=== PATIENT | male | born 1960 | race Caucasian/White ===

== ENCOUNTER 2016-09-05 14:19 | Emergency (ER) | payer MEDICARE, MEDICAID ==
[~2016-09-05] VITALS: Ht 188 cm; Wt 87.0 kg
[~2016-09-05 14:19] MED LIST: ALOPURINOL; AMLO5TAB2 PO; ASCO500T8 PO; ASPI-496 PO; ASPI-515; ATOR10TA; ATOR40TA78 PO; CARV6.252 PO; CIPR500T87 PO; CITA10TA4 PO; CLOP75TA PO; CLOP75TA22 PO; DIAZ2TAB PO; DOCU-30 PO; ERGO500017 PO; EZET10TA3 PO; FENO145T13 PO; FENO145T32 PO; FERR324T5 PO; FISH1CAP PO; FOLI-17 PO; LEVE100S6 PO; LEVE500T53 PO; LEVE750T37 PO; LOSA50TA6 PO; MAGN250T8 PO; METO-93; NIAC500T; NITR100C56 PO; OXYC-302 PO; PHEN100C PO; SULF1TAB24 PO; TAMS-11 PO; TERB250T3 PO; UBID1CAP3 PO; VITA1CAP PO; VITAMIN D2 PO; WARF3TAB PO; WARF4TAB PO; WARF6TAB7 PO
[2016-09-05] MEDS ORDERED: SODIUM CHLORIDE FLUSH 10ML SYR IVF ONE (14:30)
[2016-09-05] MEDS ORDERED: LORazepam 2 MG/ML, 1ML IVPush ONE (14:30)
[2016-09-05] MEDS ORDERED: LORazepam 2 MG/ML, 1ML ONE (14:49)
[2016-09-05] MEDS ORDERED: LEVETIRACETAM 500 MG in SODIUM CHLORIDE 0.9% 100 ML IV ONE (15:00)
[2016-09-05] MEDS ORDERED: FOLI-17 PO (15:02)
[2016-09-05] MEDS ORDERED: DOXY100T PO (15:02)
[2016-09-05] MEDS ORDERED: TERB250T3 PO (15:02)
[2016-09-05] MEDS ORDERED: ASCO500T8 PO (15:02)
[2016-09-05] MEDS ORDERED: NITR100C56 PO (15:02)
[2016-09-05 15:29] LABS: ASPARTATE AMINO TRANSFERASE 23 U/L (15-37); BLOOD UREA NITROGEN 18 mg/dL (7-18)
[2016-09-05 15:37] LABS: ACETAMINOPHEN < 2 mcg/mL (10-30); IS PT STATUS REG ER OR PRE ER? YES
[2016-09-05 15:47] LABS: DAU SCREEN DISCLAIMER
[2016-09-05 17:34] VITALS: BP 146/78
== END 2016-09-05 18:18 | disposition home or self-care (01) ==
LOC: ED 14:37
DX: R56.9 Unspecified convulsions (principal); N30.00 Acute cystitis without hematuria; I10 Essential (primary) hypertension; Z86.718 Personal history of other venous thrombosis and embolism; I25.2 Old myocardial infarction; Z86.73 Personal history of transient ischemic attack (TIA), and cerebral infarction without residual deficits; E78.5 Hyperlipidemia, unspecified
CPT/HCPCS: 36415; 70450; 71010; 80053; 80307; 80329; 81001; 83605; 84484; 85025; 85610; 87077; 87086; 87186; 93005; 96365; 96375; 99285; J1953; J2060; G0480

== ENCOUNTER 2016-09-06 21:31 | Emergency (ER) | payer MEDICARE, MEDICAID ==
[~2016-09-06] VITALS: Ht 188 cm; Wt 86.4 kg
[~2016-09-06 21:31] MED LIST changes: +DOXY100T PO
[2016-09-06 21:38] VITALS: BP 138/72
== END 2016-09-06 22:43 | disposition home or self-care (01) ==
LOC: ED 22:02
DX: R56.9 Unspecified convulsions (principal); G89.11 Acute pain due to trauma; M25.511 Pain in right shoulder; E78.5 Hyperlipidemia, unspecified; I10 Essential (primary) hypertension; I25.2 Old myocardial infarction; W05.0XXA Fall from non-moving wheelchair, initial encounter; Y93.89 Activity, other specified; Y99.8 Other external cause status; Y92.89 Other specified places as the place of occurrence of the external cause
CPT/HCPCS: 99283

== ENCOUNTER 2016-09-27 18:16 | Inpatient (IN) | payer MEDICARE, MEDICAID ==
[~2016-09-27] VITALS: Ht 188 cm; Wt 81.8 kg
[2016-09-27] MEDS ORDERED: LORA-445 PO (18:42)
[2016-09-27] MEDS ORDERED: SODIUM CHLORIDE FLUSH 10ML SYR IVF ONE (19:00)
[2016-09-27] MEDS ORDERED: SODIUM CHLORIDE 0.9% 1,000ML IVBOLUS ONE (19:00)
[2016-09-27 19:25] LABS: BLOOD UREA NITROGEN 13 mg/dL (7-18)
[2016-09-27 19:29] LABS: ASPARTATE AMINO TRANSFERASE 25 U/L (15-37)
[2016-09-27] MEDS ORDERED: LABETALOL 5MG/ML, 20ML IVPush PRN (23:30)
[2016-09-27] MEDS ORDERED: MAGNESIUM SULFATE PMX 2GM/50ML 50 ML IV ONE (23:30)
[2016-09-27] MEDS ORDERED: ENALAPRILAT 1.25 MG/ML, 2ML IVPush PRN (23:30)
[2016-09-27] MEDS ORDERED: PROMETHAZINE 25 MG/ML, 1ML IM PRN (23:30)
[2016-09-27] MEDS: SODIUM CHLORIDE 0.9% 1,000 ML IV SCH (23:45)
[2016-09-27 23:47] LABS: IS PT STATUS REG ER OR PRE ER? YES
[2016-09-28 00:14] LABS: DAU SCREEN DISCLAIMER
[2016-09-28 01:29] VITALS: BP 135/76
[2016-09-28] MEDS: LEVETIRACETAM 1,000 MG in SODIUM CHLORIDE 0.9% 100 ML IV SCH ×2 (01:43→12:11)
[2016-09-28] MEDS: ENOXAPARIN 40 MG/0.4 ML SQ SCH (01:45)
[2016-09-28 05:10] LABS: BLOOD UREA NITROGEN 13 mg/dL (7-18)
[2016-09-28 05:11] LABS: IS PT STATUS REG ER OR PRE ER? NO
[2016-09-28 05:23] LABS: ASPARTATE AMINO TRANSFERASE 27 U/L (15-37)
[2016-09-28 06:43] VITALS: BP 147/83
[2016-09-28] MEDS: SODIUM CHLORIDE 0.9% 1,000 ML IV SCH ×3 (09:46→23:47)
[2016-09-28] MEDS ORDERED: NICOTINE 7 MG/24 HR PATCH.TD24 TD SCH (13:00)
[2016-09-28] MEDS ORDERED: LORazepam 0.5MG TABLET PO PRN (13:00)
[2016-09-28 14:03] VITALS: BP 163/78
[2016-09-28 19:08] VITALS: BP 147/75
[2016-09-28] MEDS: LEVETIRACETAM 500 MG TABLET PO SCH (21:38)
[2016-09-29 01:09] VITALS: BP 148/76
[2016-09-29] MEDS: ENOXAPARIN 40 MG/0.4 ML SQ SCH (01:36)
[2016-09-29] MEDS: SODIUM CHLORIDE 0.9% 1,000 ML IV SCH (06:30)
[2016-09-29 08:00] VITALS: BP 175/99
[2016-09-29] MEDS ORDERED: LEVE500T53 PO (09:04)
[2016-09-29] MEDS: LEVETIRACETAM 500 MG TABLET PO SCH (09:23)
[2016-09-29 11:29] VITALS: BP 137/87
== END 2016-09-29 11:50 | disposition home or self-care (01) | DRG 100 ==
LOC: ED 20:51 → EDIP 22:00 → 5SO 09-28 01:09
PROVIDERS: ADMIT Internal Medicine; ATTEND Internal Medicine
PROC: 0T9B70Z Drainage of Bladder with Drainage Device, Via Natural or Artificial Opening (ICD-10-PCS; principal; 2016-09-27)
DX: G40.209 Localization-related (focal) (partial) symptomatic epilepsy and epileptic syndromes with complex partial seizures, not intractable, without status epilepticus (principal); G92 Toxic encephalopathy; I69.354 Hemiplegia and hemiparesis following cerebral infarction affecting left non-dominant side; T42.4X1A Poisoning by benzodiazepines, accidental (unintentional), initial encounter; I45.81 Long QT syndrome; I10 Essential (primary) hypertension; M10.9 Gout, unspecified; I25.10 Atherosclerotic heart disease of native coronary artery without angina pectoris; D63.8 Anemia in other chronic diseases classified elsewhere; E78.1 Pure hyperglyceridemia; E78.5 Hyperlipidemia, unspecified; N35.9 Urethral stricture, unspecified; I71.2 Thoracic aortic aneurysm, without rupture; I25.2 Old myocardial infarction; Z72.0 Tobacco use; Z71.6 Tobacco abuse counseling; Z79.01 Long term (current) use of anticoagulants; Z79.899 Other long term (current) drug therapy; Z86.79 Personal history of other diseases of the circulatory system; Z95.1 Presence of aortocoronary bypass graft; Z95.2 Presence of prosthetic heart valve; Z95.5 Presence of coronary angioplasty implant and graft; Z99.3 Dependence on wheelchair; Y92.89 Other specified places as the place of occurrence of the external cause
CPT/HCPCS: 36415; 70450; 80053; 80307; 81003; 82140; 82550; 83735; 84100; 84443; 84484; 85025; 87324; 93005; 95819; 99285; J1650; J1953; J2550; J3475; J7030

== ENCOUNTER 2016-09-30 01:31 | Inpatient (IN) | payer MEDICARE, MEDICAID ==
[~2016-09-30] VITALS: Ht 188 cm; Wt 87.9 kg
[~2016-09-30 01:31] MED LIST changes: +LORA-445 PO
[2016-09-30 02:54] LABS: ASPARTATE AMINO TRANSFERASE 20 U/L (15-37); BLOOD UREA NITROGEN 9 mg/dL (7-18)
[2016-09-30 03:05] LABS: IS PT STATUS REG ER OR PRE ER? YES
[2016-09-30 03:31] LABS: DAU SCREEN DISCLAIMER
[2016-09-30] MEDS ORDERED: CEFTRIAXONE 1,000 MG in SODIUM CHLORIDE 0.9% 50 ML IV ONE (04:30)
[2016-09-30] MEDS ORDERED: LEVETIRACETAM 500 MG in SODIUM CHLORIDE 0.9% 100 ML IV ONE (04:30)
[2016-09-30] MEDS ORDERED: CEFTRIAXONE PMX 1GM/50ML 50 ML ONE (04:34)
[2016-09-30] MEDS ORDERED: POTASSIUM CHLORIDE 20 MEQ, MAGNESIUM SULFATE 2 GM, THIAMINE 100 MG, MVI ADULT 10 ML, FO... IV SCH (05:11)
[2016-09-30] MEDS ORDERED: BISACODYL 10 MG SUPP PR PRN (05:30)
[2016-09-30] MEDS ORDERED: POLYETHYLENE GLYCOL 17 GM PACKET PO PRN (05:30)
[2016-09-30] MEDS ORDERED: hydrALAzine 20 MG/ML, 1ML IVPush PRN (05:30)
[2016-09-30] MEDS ORDERED: LORazepam 0.5MG TABLET PO PRN (05:30)
[2016-09-30] MEDS ORDERED: DOCUSATE 100 MG CAPSULE PO PRN (05:30)
[2016-09-30 06:00] VITALS: BP 166/89
[2016-09-30] MEDS: PIPERACILLIN/TAZO 3.375 GM in SODIUM CHLORIDE 0.9% 50 ML IV SCH ×4 (06:13→23:51)
[2016-09-30] MEDS: ENOXAPARIN 40 MG/0.4 ML SQ SCH (09:02)
[2016-09-30] MEDS: LEVETIRACETAM 500 MG TABLET PO SCH ×2 (09:03→20:41)
[2016-09-30] MEDS: CARVEDILOL 6.25 MG TABLET PO SCH ×2 (09:03→20:42)
[2016-09-30] MEDS: LOSARTAN 50MG TABLET PO SCH ×2 (09:03→20:42)
[2016-09-30] MEDS: ASPIRIN 81 MG TABLET EC PO SCH (09:03)
[2016-09-30] MEDS: AMLODIPINE 5 MG TABLET PO SCH (09:03)
[2016-09-30] MEDS: CLOPIDOGREL 75 MG TABLET PO SCH (09:03)
[2016-09-30 14:04] VITALS: BP 112/70
[2016-09-30 18:53] VITALS: BP 149/83
[2016-09-30] MEDS: FOLIC ACID 1 MG TABLET PO SCH (20:41)
[2016-09-30] MEDS: TAMSULOSIN 0.4 MG CAP.ER.24H PO SCH (20:41)
[2016-09-30] MEDS: EZETIMIBE 10 MG TABLET PO SCH (20:41)
[2016-09-30] MEDS: ATORVASTATIN 80 MG TABLET PO SCH (20:41)
[2016-09-30] MEDS: FENOFIBRATE 145 MG TABLET PO SCH (20:41)
[2016-09-30] MEDS: CITALOPRAM 20 MG TABLET PO SCH (20:42)
[2016-10-01 01:36] VITALS: BP 130/65
[2016-10-01 01:43] VITALS: BP 147/74
[2016-10-01] MEDS: PIPERACILLIN/TAZO 3.375 GM in SODIUM CHLORIDE 0.9% 50 ML IV SCH (05:19)
[2016-10-01] MEDS: POTASSIUM CHLORIDE 20 MEQ, MAGNESIUM SULFATE 2 GM, THIAMINE 100 MG, MVI ADULT 10 ML, FO... IV SCH (05:58)
[2016-10-01 08:06] VITALS: BP 123/77
[2016-10-01] MEDS: CARVEDILOL 6.25 MG TABLET PO SCH ×2 (09:04→21:34)
[2016-10-01] MEDS: CLOPIDOGREL 75 MG TABLET PO SCH (09:04)
[2016-10-01] MEDS: ENOXAPARIN 40 MG/0.4 ML SQ SCH (09:05)
[2016-10-01] MEDS: LOSARTAN 50MG TABLET PO SCH ×2 (09:05→21:34)
[2016-10-01] MEDS: LEVETIRACETAM 500 MG TABLET PO SCH ×2 (09:06→21:34)
[2016-10-01] MEDS: AMLODIPINE 5 MG TABLET PO SCH (09:06)
[2016-10-01] MEDS: ASPIRIN 81 MG TABLET EC PO SCH (09:06)
[2016-10-01 14:07] VITALS: BP 145/82
[2016-10-01 18:41] VITALS: BP 126/73
[2016-10-01] MEDS: EZETIMIBE 10 MG TABLET PO SCH (21:34)
[2016-10-01] MEDS: ATORVASTATIN 80 MG TABLET PO SCH (21:34)
[2016-10-01] MEDS: TAMSULOSIN 0.4 MG CAP.ER.24H PO SCH (21:34)
[2016-10-01] MEDS: FOLIC ACID 1 MG TABLET PO SCH (21:34)
[2016-10-01] MEDS: FENOFIBRATE 145 MG TABLET PO SCH (21:34)
[2016-10-01] MEDS: CITALOPRAM 20 MG TABLET PO SCH (21:35)
[2016-10-02 01:21] VITALS: BP 159/73
[2016-10-02] MEDS: POTASSIUM CHLORIDE 20 MEQ, MAGNESIUM SULFATE 2 GM, THIAMINE 100 MG, MVI ADULT 10 ML, FO... IV SCH (05:23)
[2016-10-02 07:24] VITALS: BP 170/87
[2016-10-02] MEDS: CARVEDILOL 6.25 MG TABLET PO SCH ×2 (07:36→19:50)
[2016-10-02] MEDS: CLOPIDOGREL 75 MG TABLET PO SCH (07:36)
[2016-10-02] MEDS: ENOXAPARIN 40 MG/0.4 ML SQ SCH (07:36)
[2016-10-02] MEDS: AMLODIPINE 5 MG TABLET PO SCH (07:36)
[2016-10-02] MEDS: ASPIRIN 81 MG TABLET EC PO SCH (07:36)
[2016-10-02] MEDS: LEVETIRACETAM 500 MG TABLET PO SCH ×2 (07:36→19:51)
[2016-10-02] MEDS: LOSARTAN 50MG TABLET PO SCH ×2 (07:36→19:51)
[2016-10-02] MEDS: NICOTINE 14MG/24 HR PATCH.TD24 TD SCH (10:13)
[2016-10-02 12:39] VITALS: BP 112/67
[2016-10-02] MEDS ORDERED: LORazepam 1MG TABLET ONE (13:36)
[2016-10-02] MEDS: TAMSULOSIN 0.4 MG CAP.ER.24H PO SCH (19:50)
[2016-10-02] MEDS: EZETIMIBE 10 MG TABLET PO SCH (19:50)
[2016-10-02] MEDS: FOLIC ACID 1 MG TABLET PO SCH (19:50)
[2016-10-02] MEDS: FENOFIBRATE 145 MG TABLET PO SCH (19:51)
[2016-10-02] MEDS: CITALOPRAM 20 MG TABLET PO SCH (19:51)
[2016-10-02] MEDS: ATORVASTATIN 80 MG TABLET PO SCH (19:51)
[2016-10-02 21:04] VITALS: BP 119/74
[2016-10-03 01:32] VITALS: BP 108/73
[2016-10-03] MEDS: POTASSIUM CHLORIDE 20 MEQ, MAGNESIUM SULFATE 2 GM, THIAMINE 100 MG, MVI ADULT 10 ML, FO... IV SCH (05:31)
[2016-10-03 06:54] VITALS: BP 121/75
[2016-10-03] MEDS ORDERED: ASPIRIN 325 MG TABLET PO ONE (07:00)
[2016-10-03] MEDS ORDERED: NITROGLYCERIN 0.4 MG BOTTLE (25 TABS) SL ONE (07:00)
[2016-10-03 08:26] VITALS: BP 108/66
[2016-10-03 08:34] LABS: IS PT STATUS REG ER OR PRE ER? NO
[2016-10-03] MEDS: ASPIRIN 81 MG TABLET EC PO SCH (09:40)
[2016-10-03] MEDS: LEVETIRACETAM 500 MG TABLET PO SCH ×2 (09:40→20:17)
[2016-10-03] MEDS: CLOPIDOGREL 75 MG TABLET PO SCH (09:40)
[2016-10-03] MEDS: CARVEDILOL 6.25 MG TABLET PO SCH ×2 (09:40→20:17)
[2016-10-03] MEDS: AMLODIPINE 5 MG TABLET PO SCH (09:40)
[2016-10-03] MEDS: LOSARTAN 50MG TABLET PO SCH ×2 (09:40→20:17)
[2016-10-03] MEDS: PIPERACILLIN/TAZO/PMX 3.375GM 50 ML IV SCH ×3 (09:40→20:17)
[2016-10-03] MEDS: ENOXAPARIN 40 MG/0.4 ML SQ SCH (09:41)
[2016-10-03] MEDS: NICOTINE 14MG/24 HR PATCH.TD24 TD SCH (09:55)
[2016-10-03 12:44] VITALS: BP 109/65
[2016-10-03] MEDS: ACETAMINOPHEN 325 MG TABLET PO PRN (15:03)
[2016-10-03] MEDS: FOLIC ACID 1 MG TABLET PO SCH (20:16)
[2016-10-03] MEDS: FENOFIBRATE 145 MG TABLET PO SCH (20:16)
[2016-10-03] MEDS: TAMSULOSIN 0.4 MG CAP.ER.24H PO SCH (20:16)
[2016-10-03] MEDS: EZETIMIBE 10 MG TABLET PO SCH (20:16)
[2016-10-03] MEDS: ATORVASTATIN 80 MG TABLET PO SCH (20:17)
[2016-10-03] MEDS: CITALOPRAM 20 MG TABLET PO SCH (20:17)
[2016-10-03 20:18] VITALS: BP 112/72
[2016-10-04 02:00] VITALS: BP 132/82
[2016-10-04] MEDS: PIPERACILLIN/TAZO/PMX 3.375GM 50 ML IV SCH ×4 (02:13→21:19)
[2016-10-04] MEDS: POTASSIUM CHLORIDE 20 MEQ, MAGNESIUM SULFATE 2 GM, THIAMINE 100 MG, MVI ADULT 10 ML, FO... IV SCH (06:31)
[2016-10-04 07:34] VITALS: BP 119/74
[2016-10-04] MEDS: NICOTINE 14MG/24 HR PATCH.TD24 TD SCH (09:30)
[2016-10-04] MEDS: LOSARTAN 50MG TABLET PO SCH ×2 (10:12→21:18)
[2016-10-04] MEDS: ENOXAPARIN 40 MG/0.4 ML SQ SCH (10:12)
[2016-10-04] MEDS: LEVETIRACETAM 500 MG TABLET PO SCH ×2 (10:12→21:18)
[2016-10-04] MEDS: CLOPIDOGREL 75 MG TABLET PO SCH (10:12)
[2016-10-04] MEDS: AMLODIPINE 5 MG TABLET PO SCH (10:13)
[2016-10-04] MEDS: ASPIRIN 81 MG TABLET EC PO SCH (10:13)
[2016-10-04] MEDS: CARVEDILOL 6.25 MG TABLET PO SCH ×2 (10:13→21:18)
[2016-10-04 12:58] VITALS: BP 112/75
[2016-10-04] MEDS: ACETAMINOPHEN 325 MG TABLET PO PRN (16:02)
[2016-10-04 19:13] VITALS: BP 117/72
[2016-10-04] MEDS: ATORVASTATIN 80 MG TABLET PO SCH (21:18)
[2016-10-04] MEDS: TAMSULOSIN 0.4 MG CAP.ER.24H PO SCH (21:18)
[2016-10-04] MEDS: FENOFIBRATE 145 MG TABLET PO SCH (21:18)
[2016-10-04] MEDS: EZETIMIBE 10 MG TABLET PO SCH (21:18)
[2016-10-04] MEDS: FOLIC ACID 1 MG TABLET PO SCH (21:18)
[2016-10-04] MEDS: CITALOPRAM 20 MG TABLET PO SCH (21:19)
[2016-10-05 02:10] VITALS: BP 108/66
[2016-10-05] MEDS: PIPERACILLIN/TAZO/PMX 3.375GM 50 ML IV SCH ×3 (03:42→15:00)
[2016-10-05] MEDS: POTASSIUM CHLORIDE 20 MEQ, MAGNESIUM SULFATE 2 GM, THIAMINE 100 MG, MVI ADULT 10 ML, FO... IV SCH (06:21)
[2016-10-05 06:54] VITALS: BP 109/59
[2016-10-05] MEDS: LEVETIRACETAM 500 MG TABLET PO SCH ×2 (09:16→20:29)
[2016-10-05] MEDS: AMLODIPINE 5 MG TABLET PO SCH (09:16)
[2016-10-05] MEDS: CLOPIDOGREL 75 MG TABLET PO SCH (09:16)
[2016-10-05] MEDS: LOSARTAN 50MG TABLET PO SCH ×2 (09:16→20:30)
[2016-10-05] MEDS: CARVEDILOL 6.25 MG TABLET PO SCH ×2 (09:16→20:29)
[2016-10-05] MEDS: ASPIRIN 81 MG TABLET EC PO SCH (09:16)
[2016-10-05] MEDS: NICOTINE 14MG/24 HR PATCH.TD24 TD SCH (09:17)
[2016-10-05] MEDS: ENOXAPARIN 40 MG/0.4 ML SQ SCH (09:17)
[2016-10-05 13:42] VITALS: BP 118/62
[2016-10-05 19:51] VITALS: BP 127/69
[2016-10-05] MEDS: TAMSULOSIN 0.4 MG CAP.ER.24H PO SCH (20:29)
[2016-10-05] MEDS: FOLIC ACID 1 MG TABLET PO SCH (20:29)
[2016-10-05] MEDS: FENOFIBRATE 145 MG TABLET PO SCH (20:29)
[2016-10-05] MEDS: EZETIMIBE 10 MG TABLET PO SCH (20:29)
[2016-10-05] MEDS: CITALOPRAM 20 MG TABLET PO SCH (20:29)
[2016-10-05] MEDS: ATORVASTATIN 80 MG TABLET PO SCH (20:30)
[2016-10-06 01:26] VITALS: BP 113/72
[2016-10-06] MEDS ORDERED: LORazepam 1MG TABLET ONE ×2 (01:37→13:57)
[2016-10-06] MEDS: LORazepam 0.5MG TABLET PO PRN ×2 (01:39→14:01)
[2016-10-06 06:43] VITALS: BP 150/91
[2016-10-06] MEDS: CARVEDILOL 6.25 MG TABLET PO SCH ×2 (09:26→20:36)
[2016-10-06] MEDS: ENOXAPARIN 40 MG/0.4 ML SQ SCH (09:27)
[2016-10-06] MEDS: ASPIRIN 81 MG TABLET EC PO SCH (09:27)
[2016-10-06] MEDS: AMLODIPINE 5 MG TABLET PO SCH (09:27)
[2016-10-06] MEDS: LOSARTAN 50MG TABLET PO SCH ×2 (09:27→20:36)
[2016-10-06] MEDS: CLOPIDOGREL 75 MG TABLET PO SCH (09:27)
[2016-10-06] MEDS: MULTIVITAMIN 1 TABLET PO SCH (09:27)
[2016-10-06] MEDS: LEVETIRACETAM 500 MG TABLET PO SCH ×2 (09:27→20:35)
[2016-10-06] MEDS: NICOTINE 14MG/24 HR PATCH.TD24 TD SCH (09:29)
[2016-10-06 12:54] VITALS: BP 99/65
[2016-10-06 18:26] VITALS: BP 151/73
[2016-10-06] MEDS: FOLIC ACID 1 MG TABLET PO SCH (20:35)
[2016-10-06] MEDS: EZETIMIBE 10 MG TABLET PO SCH (20:35)
[2016-10-06] MEDS: TAMSULOSIN 0.4 MG CAP.ER.24H PO SCH (20:36)
[2016-10-06] MEDS: ATORVASTATIN 80 MG TABLET PO SCH (20:36)
[2016-10-06] MEDS: FENOFIBRATE 145 MG TABLET PO SCH (20:36)
[2016-10-06] MEDS: CITALOPRAM 20 MG TABLET PO SCH (20:36)
[2016-10-07 01:25] VITALS: BP 99/59
[2016-10-07 08:06] VITALS: BP 137/74
[2016-10-07] MEDS: CARVEDILOL 6.25 MG TABLET PO SCH (08:40)
[2016-10-07] MEDS: LOSARTAN 50MG TABLET PO SCH (08:40)
[2016-10-07] MEDS: LEVETIRACETAM 500 MG TABLET PO SCH (08:40)
[2016-10-07] MEDS: NICOTINE 14MG/24 HR PATCH.TD24 TD SCH (08:40)
[2016-10-07] MEDS: ASPIRIN 81 MG TABLET EC PO SCH (08:40)
[2016-10-07] MEDS: MULTIVITAMIN 1 TABLET PO SCH (08:40)
[2016-10-07] MEDS: ENOXAPARIN 40 MG/0.4 ML SQ SCH (08:41)
[2016-10-07] MEDS: CLOPIDOGREL 75 MG TABLET PO SCH (09:50)
[2016-10-07] MEDS: AMLODIPINE 5 MG TABLET PO SCH (09:50)
[2016-10-07 12:51] VITALS: BP 105/59
[2016-10-07] MEDS ORDERED: NICO1PAT4 TD (12:56)
[2016-10-07] MEDS ORDERED: POLY17PO5 PO (12:56)
[2016-10-07] MEDS ORDERED: MULT1TAB60 PO (12:56)
== END 2016-10-07 13:55 | DRG 100 ==
LOC: ED 03:33 → EDIP 05:02 → 3NW 05:37 → 4WST 10-03 07:55
PROVIDERS: ADMIT Internal Medicine; ATTEND Internal Medicine
PROC: 0T9B70Z Drainage of Bladder with Drainage Device, Via Natural or Artificial Opening (ICD-10-PCS; principal; 2016-09-30)
DX: G40.909 Epilepsy, unspecified, not intractable, without status epilepticus (principal); G93.41 Metabolic encephalopathy; N39.0 Urinary tract infection, site not specified; B96.5 Pseudomonas (aeruginosa) (mallei) (pseudomallei) as the cause of diseases classified elsewhere; E78.5 Hyperlipidemia, unspecified; F10.10 Alcohol abuse, uncomplicated; R32 Unspecified urinary incontinence; I10 Essential (primary) hypertension; I25.10 Atherosclerotic heart disease of native coronary artery without angina pectoris; I25.2 Old myocardial infarction; Z86.73 Personal history of transient ischemic attack (TIA), and cerebral infarction without residual deficits; Z87.440 Personal history of urinary (tract) infections; Z91.14 Patient's other noncompliance with medication regimen; Z86.718 Personal history of other venous thrombosis and embolism
CPT/HCPCS: 36415; 70450; 71010; 72125; 80053; 80307; 81001; 83605; 84484; 85025; 87077; 87086; 87186; 93005; 96365; 96368; 96375; J0696; J1650; J1953; J2543; J3411; J3475; J3480; J7042; 92523-GN

== ENCOUNTER 2016-11-12 10:05 | Emergency (ER) | payer MEDICARE, MEDICAID ==
[~2016-11-12] VITALS: Ht 188 cm; Wt 82.0 kg
[~2016-11-12 10:05] MED LIST changes: +MULT1TAB60 PO; +NICO1PAT4 TD; +POLY17PO5 PO
[2016-11-12] MEDS ORDERED: SODIUM CHLORIDE 0.9% 1,000 ML IV ONE (10:11)
[2016-11-12] MEDS ORDERED: PLEASE ENTER HEIGHT AND WEIGHT MC SCH (10:30)
[2016-11-12] MEDS ORDERED: SODIUM CHLORIDE FLUSH 10ML SYR IVF ONE (10:30)
[2016-11-12 11:00] LABS: HEMATOCRIT 44.5 % (39.2-51.8); HEMOGLOBIN 14.4 g/dL (13.7-18.0)
[2016-11-12 11:14] LABS: BLOOD UREA NITROGEN 15 mg/dL (7-18)
[2016-11-12 11:21] LABS: IS PT STATUS REG ER OR PRE ER? YES
[2016-11-12] MEDS ORDERED: LEVETIRACETAM 750 MG in SODIUM CHLORIDE 0.9% 100 ML IV ONE (13:00)
[2016-11-12] MEDS ORDERED: IBUPROFEN 200 MG TABLET ONE (15:44)
[2016-11-12] MEDS ORDERED: IBUPROFEN 200 MG TABLET PO ONE (16:00)
[2016-11-12 16:25] VITALS: BP 150/72
== END 2016-11-12 17:08 | disposition home or self-care (01) ==
LOC: ED 11:32
DX: Z76.0 Encounter for issue of repeat prescription (principal); M62.838 Other muscle spasm; R25.3 Fasciculation; I25.2 Old myocardial infarction; E78.5 Hyperlipidemia, unspecified; I10 Essential (primary) hypertension; F17.200 Nicotine dependence, unspecified, uncomplicated; Z86.73 Personal history of transient ischemic attack (TIA), and cerebral infarction without residual deficits; Z95.1 Presence of aortocoronary bypass graft; Z95.2 Presence of prosthetic heart valve
CPT/HCPCS: 36415; 70450; 71010; 80048; 81003; 82040; 84484; 85025; 85610; 85730; 93005; 96361; 96365; 99285; J1953; J7030

== ENCOUNTER 2016-11-24 12:44 | Emergency (ER) | payer MEDICARE, MEDICAID ==
[~2016-11-24] VITALS: Ht 188 cm; Wt 84.0 kg
[2016-11-24] MEDS ORDERED: SODIUM CHLORIDE 0.9% 1,000 ML IV ONE (12:59)
[2016-11-24] MEDS ORDERED: SODIUM CHLORIDE 0.9% 1,000ML IVBOLUS ONE (13:00)
[2016-11-24] MEDS ORDERED: SODIUM CHLORIDE FLUSH 10ML SYR IVF ONE (13:00)
[2016-11-24 13:17] LABS: HEMATOCRIT 40.9 % (39.2-51.8); HEMOGLOBIN 13.9 g/dL (13.7-18.0); WHITE BLOOD COUNT 6.7 x10^3/uL (3.4-10)
[2016-11-24 13:29] LABS: BLOOD UREA NITROGEN 11 mg/dL (7-18)
[2016-11-24 13:34] LABS: IS PT STATUS REG ER OR PRE ER? YES
[2016-11-24 13:36] LABS: PATH.CAST-FLAG NOT PRESENT; SPERM-FLAG NOT PRESENT; SRC-FLAG NOT PRESENT; XTAL-FLAG NOT PRESENT; YLC-FLAG NOT PRESENT
[2016-11-24 17:53] VITALS: BP 132/72
[2016-11-26] MEDS ORDERED: EZET10TA3 PO (00:35)
== END 2016-11-24 17:55 | disposition home or self-care (01) ==
LOC: ED 14:17
DX: Z00.8 Encounter for other general examination (principal); I11.9 Hypertensive heart disease without heart failure; I25.10 Atherosclerotic heart disease of native coronary artery without angina pectoris; Z86.718 Personal history of other venous thrombosis and embolism; Z86.73 Personal history of transient ischemic attack (TIA), and cerebral infarction without residual deficits; I25.2 Old myocardial infarction; W01.0XXA Fall on same level from slipping, tripping and stumbling without subsequent striking against object, initial encounter; Y93.89 Activity, other specified; Y92.009 Unspecified place in unspecified non-institutional (private) residence as the place of occurrence of the external cause; Y99.9 Unspecified external cause status
CPT/HCPCS: 36415; 80048; 80307; 81001; 82040; 84484; 85025; 87086; 93005; 96360; 99285; J7030

== ENCOUNTER 2016-11-26 00:15 | Emergency (ER) | payer MEDICARE, MEDICAID ==
[~2016-11-26] VITALS: Ht 188 cm; Wt 84.0 kg
[~2016-11-26 00:15] MED LIST changes: -CLOP75TA22 PO; +CLOP75TA52 PO; +DOCU-131 PO; -DOCU-30 PO; +EZET10TA18 PO; -EZET10TA3 PO; +NICO1PAT13 TD; -NICO1PAT4 TD
[2016-11-26] MEDS ORDERED: EZET10TA18 PO (00:35)
[2016-11-26 01:34] VITALS: BP 145/77
== END 2016-11-26 02:12 | disposition home or self-care (01) ==
LOC: ED 02:00
DX: S09.90XA Unspecified injury of head, initial encounter (principal); M25.512 Pain in left shoulder; I25.10 Atherosclerotic heart disease of native coronary artery without angina pectoris; G40.909 Epilepsy, unspecified, not intractable, without status epilepticus; E78.5 Hyperlipidemia, unspecified; I25.2 Old myocardial infarction; I10 Essential (primary) hypertension; Z86.73 Personal history of transient ischemic attack (TIA), and cerebral infarction without residual deficits; Z86.2 Personal history of diseases of the blood and blood-forming organs and certain disorders involving the immune mechanism; Z86.718 Personal history of other venous thrombosis and embolism; Z95.2 Presence of prosthetic heart valve; Z98.890 Other specified postprocedural states; W05.0XXA Fall from non-moving wheelchair, initial encounter; Y93.89 Activity, other specified; Y99.8 Other external cause status; Y92.89 Other specified places as the place of occurrence of the external cause
CPT/HCPCS: 70450

== ENCOUNTER 2016-11-29 03:08 | Inpatient (IN) | payer MEDICARE, MEDICAID ==
[~2016-11-29] VITALS: Ht 188 cm; Wt 79.7 kg
[2016-11-29] MEDS ORDERED: BACITRACIN ZINC OINT 500U/GM, 0.9 GM ONE (03:38)
[2016-11-29] MEDS ORDERED: CEFAZOLIN PMX 1GM/50ML 50 ML ONE (04:10)
[2016-11-29] MEDS ORDERED: CEFAZOLIN PMX 1GM/50ML 50 ML IVPB ONE (04:30)
[2016-11-29] MEDS ORDERED: SODIUM CHLORIDE FLUSH 10ML SYR IVF ONE (04:30)
[2016-11-29] MEDS ORDERED: SODIUM CHLORIDE 0.9% 1,000ML IVBOLUS ONE (04:30)
[2016-11-29 04:57] LABS: HEMATOCRIT 44.4 % (39.2-51.8); HEMOGLOBIN 14.8 g/dL (13.7-18.0)
[2016-11-29 05:12] LABS: BLOOD UREA NITROGEN 28 mg/dL (7-18)
[2016-11-29] MEDS ORDERED: ONDANSETRON ODT 4 MG PO PRN ×2 (05:30→16:30)
[2016-11-29] MEDS ORDERED: LABETALOL 5MG/ML, 20ML IVPush PRN ×2 (05:30→16:30)
[2016-11-29] MEDS ORDERED: ONDANSETRON 2MG/ML, 2ML IVPush PRN ×2 (05:30→16:30)
[2016-11-29] MEDS ORDERED: LORazepam 0.5MG TABLET PO PRN (05:30)
[2016-11-29] MEDS: SODIUM CHLORIDE 0.9% 1,000 ML IV SCH ×2 (05:59→15:27)
[2016-11-29 06:17] VITALS: BP 142/81
[2016-11-29 07:37] VITALS: BP 150/77
[2016-11-29] MEDS: CARVEDILOL 6.25 MG TABLET PO SCH ×2 (09:43→21:03)
[2016-11-29] MEDS: LEVETIRACETAM 500 MG TABLET PO SCH ×2 (09:44→21:04)
[2016-11-29] MEDS: AMLODIPINE 5 MG TABLET PO SCH (09:45)
[2016-11-29] MEDS: ENOXAPARIN 40 MG/0.4 ML SQ SCH (09:45)
[2016-11-29] MEDS: DOXYCYCLINE 100MG TABLET PO SCH ×2 (09:45→21:02)
[2016-11-29] MEDS: ASPIRIN 81 MG TABLET EC PO SCH (09:46)
[2016-11-29] MEDS: CLOPIDOGREL 75 MG TABLET PO SCH (09:46)
[2016-11-29] MEDS ORDERED: NICOTINE 21 MG/24 HR PATCH.TD24 TD ONE (10:00)
[2016-11-29 13:48] VITALS: BP 116/83
[2016-11-29] MEDS: HYDROcodone/APAP 5/325 TABLET PO PRN (19:50)
[2016-11-29 20:25] VITALS: BP 118/61
[2016-11-29] MEDS: LORazepam 0.5MG TABLET PO PRN (21:03)
[2016-11-29] MEDS: EZETIMIBE 10 MG TABLET PO SCH (21:03)
[2016-11-29] MEDS: TAMSULOSIN 0.4 MG CAP.ER.24H PO SCH (21:03)
[2016-11-29] MEDS: ATORVASTATIN 40 MG TABLET PO SCH (21:03)
[2016-11-30] MEDS: SODIUM CHLORIDE 0.9% 1,000 ML IV SCH ×3 (01:30→22:59)
[2016-11-30] MEDS: HYDROcodone/APAP 5/325 TABLET PO PRN ×3 (01:49→16:32)
[2016-11-30 03:14] VITALS: BP 114/67
[2016-11-30 07:07] VITALS: BP 111/58
[2016-11-30] MEDS: CARVEDILOL 6.25 MG TABLET PO SCH ×2 (08:21→21:00)
[2016-11-30] MEDS: ENOXAPARIN 40 MG/0.4 ML SQ SCH (08:22)
[2016-11-30] MEDS: EZETIMIBE 10 MG TABLET PO SCH (08:22)
[2016-11-30] MEDS: DOXYCYCLINE 100MG TABLET PO SCH ×2 (08:22→22:59)
[2016-11-30] MEDS: LEVETIRACETAM 500 MG TABLET PO SCH ×2 (08:22→22:59)
[2016-11-30] MEDS: ASPIRIN 81 MG TABLET EC PO SCH (08:22)
[2016-11-30] MEDS: CLOPIDOGREL 75 MG TABLET PO SCH (08:22)
[2016-11-30] MEDS: AMLODIPINE 5 MG TABLET PO SCH (08:22)
[2016-11-30 15:48] VITALS: BP 128/74
[2016-11-30 19:20] VITALS: BP 112/67
[2016-11-30] MEDS: LORazepam 0.5MG TABLET PO PRN (22:59)
[2016-11-30] MEDS: ATORVASTATIN 40 MG TABLET PO SCH (23:00)
[2016-11-30] MEDS: TAMSULOSIN 0.4 MG CAP.ER.24H PO SCH (23:00)
[2016-12-01 01:32] VITALS: BP 138/71
[2016-12-01 07:12] VITALS: BP 156/93
[2016-12-01] MEDS: CARVEDILOL 6.25 MG TABLET PO SCH ×2 (09:25→21:28)
[2016-12-01] MEDS: LEVETIRACETAM 500 MG TABLET PO SCH ×2 (09:25→21:29)
[2016-12-01] MEDS: CLOPIDOGREL 75 MG TABLET PO SCH (09:25)
[2016-12-01] MEDS: AMLODIPINE 5 MG TABLET PO SCH (09:25)
[2016-12-01] MEDS: EZETIMIBE 10 MG TABLET PO SCH (09:25)
[2016-12-01] MEDS: ENOXAPARIN 40 MG/0.4 ML SQ SCH (09:25)
[2016-12-01] MEDS: ASPIRIN 81 MG TABLET EC PO SCH (09:25)
[2016-12-01] MEDS: DOXYCYCLINE 100MG TABLET PO SCH ×2 (09:25→21:29)
[2016-12-01 13:34] VITALS: BP 110/60
[2016-12-01] MEDS: SODIUM CHLORIDE 0.9% 1,000 ML IV SCH ×2 (13:44→23:49)
[2016-12-01 19:53] VITALS: BP 106/59
[2016-12-01 21:25] VITALS: BP 152/91
[2016-12-01] MEDS: TAMSULOSIN 0.4 MG CAP.ER.24H PO SCH (21:28)
[2016-12-01] MEDS: ATORVASTATIN 40 MG TABLET PO SCH (21:28)
[2016-12-01] MEDS: HYDROcodone/APAP 5/325 TABLET PO PRN (21:30)
[2016-12-01] MEDS: MIRTAZAPINE 15 MG TABLET PO SCH (21:33)
[2016-12-02 01:34] VITALS: BP 124/71
[2016-12-02 08:21] VITALS: BP 146/85
[2016-12-02] MEDS: CARVEDILOL 6.25 MG TABLET PO SCH ×2 (08:35→21:15)
[2016-12-02] MEDS: LEVETIRACETAM 500 MG TABLET PO SCH ×2 (08:36→21:16)
[2016-12-02] MEDS: DOXYCYCLINE 100MG TABLET PO SCH ×2 (08:36→21:15)
[2016-12-02] MEDS: EZETIMIBE 10 MG TABLET PO SCH (08:36)
[2016-12-02] MEDS: ASPIRIN 81 MG TABLET EC PO SCH (08:36)
[2016-12-02] MEDS: CLOPIDOGREL 75 MG TABLET PO SCH (08:36)
[2016-12-02] MEDS: ENOXAPARIN 40 MG/0.4 ML SQ SCH (08:36)
[2016-12-02] MEDS: AMLODIPINE 5 MG TABLET PO SCH (08:36)
[2016-12-02] MEDS: SODIUM CHLORIDE 0.9% 1,000 ML IV SCH (11:24)
[2016-12-02 14:35] VITALS: BP 104/65
[2016-12-02 19:55] VITALS: BP 123/68
[2016-12-02] MEDS: HYDROcodone/APAP 5/325 TABLET PO PRN (21:15)
[2016-12-02] MEDS: TAMSULOSIN 0.4 MG CAP.ER.24H PO SCH (21:15)
[2016-12-02] MEDS: MIRTAZAPINE 15 MG TABLET PO SCH (21:15)
[2016-12-02] MEDS: ATORVASTATIN 40 MG TABLET PO SCH (21:16)
[2016-12-03] MEDS: ENOXAPARIN 40 MG/0.4 ML SQ SCH (08:15)
[2016-12-03] MEDS: EZETIMIBE 10 MG TABLET PO SCH (08:15)
[2016-12-03] MEDS: ASPIRIN 81 MG TABLET EC PO SCH (08:15)
[2016-12-03] MEDS: DOXYCYCLINE 100MG TABLET PO SCH (08:15)
[2016-12-03] MEDS: CLOPIDOGREL 75 MG TABLET PO SCH (08:15)
[2016-12-03] MEDS: CARVEDILOL 6.25 MG TABLET PO SCH (08:15)
[2016-12-03] MEDS: LEVETIRACETAM 500 MG TABLET PO SCH (08:15)
[2016-12-03] MEDS: AMLODIPINE 5 MG TABLET PO SCH (08:15)
[2016-12-03] MEDS: HYDROcodone/APAP 5/325 TABLET PO PRN (08:15)
[2016-12-03 11:56] LABS: HEMATOCRIT 43.9 % (39.2-51.8); HEMOGLOBIN 14.6 g/dL (13.7-18.0); WHITE BLOOD COUNT 6.6 x10^3/uL (3.4-10)
[2016-12-03 12:05] LABS: BLOOD UREA NITROGEN 15 mg/dL (7-18)
[2016-12-03] MEDS ORDERED: DOXY100T PO (13:32)
[2016-12-03] MEDS ORDERED: MIRT15TA4 PO (13:37)
[2016-12-03 16:38] VITALS: BP 104/57
== END 2016-12-03 18:20 | DRG 603 ==
LOC: ED 03:29 → EDIP 04:59 → 4NOR 05:50 → 5SO 12-01 18:51
PROVIDERS: ADMIT Hospitalist; ATTEND Hospitalist
DX: L03.116 Cellulitis of left lower limb (principal); R45.851 Suicidal ideations; I69.354 Hemiplegia and hemiparesis following cerebral infarction affecting left non-dominant side; L97.429 Non-pressure chronic ulcer of left heel and midfoot with unspecified severity; I10 Essential (primary) hypertension; F10.20 Alcohol dependence, uncomplicated; I25.10 Atherosclerotic heart disease of native coronary artery without angina pectoris; E78.5 Hyperlipidemia, unspecified; E86.0 Dehydration; F17.210 Nicotine dependence, cigarettes, uncomplicated; G40.909 Epilepsy, unspecified, not intractable, without status epilepticus; I25.2 Old myocardial infarction; Z59.0 Homelessness; Z86.79 Personal history of other diseases of the circulatory system; Z95.1 Presence of aortocoronary bypass graft; Z95.2 Presence of prosthetic heart valve; Z95.5 Presence of coronary angioplasty implant and graft; Z99.3 Dependence on wheelchair; Z71.6 Tobacco abuse counseling
CPT/HCPCS: 36415; 80048; 82040; 83735; 84439; 84443; 85025; 85651; 86140; 87040; 99285; J0690; J1650; J7030

== ENCOUNTER 2017-03-06 01:06 | Emergency (ER) | payer MEDICAID, MEDICARE ==
[~2017-03-06] VITALS: Ht 188 cm; Wt 85.0 kg
[~2017-03-06 01:06] MED LIST changes: +MIRT15TA4 PO; +NICO-486 TD; -NICO1PAT13 TD
[2017-03-06] MEDS ORDERED: SODIUM CHLORIDE FLUSH 10ML SYR IVF ONE (01:30)
[2017-03-06] MEDS ORDERED: ONDANSETRON 2MG/ML, 2ML IVPush ONE (01:30)
[2017-03-06] MEDS ORDERED: SODIUM CHLORIDE 0.9% 1,000ML IVBOLUS ONE (01:30)
[2017-03-06 01:45] LABS: HEMATOCRIT 47.2 % (39.2-51.8); HEMOGLOBIN 15.8 g/dL (13.7-18.0); WHITE BLOOD COUNT 11.9 x10^3/uL (3.4-10)
[2017-03-06] MEDS ORDERED: ONDANSETRON 2MG/ML, 2ML ONE (01:49)
[2017-03-06 01:52] LABS: ASPARTATE AMINO TRANSFERASE 24 U/L (15-37); BLOOD UREA NITROGEN 16 mg/dL (7-18)
[2017-03-06 02:50] VITALS: BP 168/88
== END 2017-03-06 04:09 | disposition home or self-care (01) ==
LOC: ED 03:04
DX: G51.3 Clonic hemifacial spasm (principal); R25.2 Cramp and spasm; E78.5 Hyperlipidemia, unspecified; I10 Essential (primary) hypertension; Z86.73 Personal history of transient ischemic attack (TIA), and cerebral infarction without residual deficits; Z86.718 Personal history of other venous thrombosis and embolism; I25.2 Old myocardial infarction; I25.810 Atherosclerosis of coronary artery bypass graft(s) without angina pectoris; Z95.1 Presence of aortocoronary bypass graft
CPT/HCPCS: 36415; 80053; 81001; 85025; 87086; 93005; 96361; 96374; 99285; J2405; J7030

== ENCOUNTER 2017-03-13 21:09 | Emergency (ER) | payer MEDICARE ==
[~2017-03-13] VITALS: Ht 188 cm; Wt 86.0 kg
[2017-03-13 22:21] LABS: HEMATOCRIT 41.6 % (39.2-51.8); HEMOGLOBIN 14.2 g/dL (13.7-18.0); WHITE BLOOD COUNT 7.8 x10^3/uL (3.4-10)
[2017-03-13 22:33] LABS: BLOOD UREA NITROGEN 19 mg/dL (7-18)
[2017-03-13 22:46] LABS: IS PT STATUS REG ER OR PRE ER? YES
[2017-03-13 23:23] VITALS: BP 118/67
== END 2017-03-14 00:41 | disposition home or self-care (01) ==
LOC: ED 21:24
DX: R00.2 Palpitations (principal); R55 Syncope and collapse; R42 Dizziness and giddiness; E78.5 Hyperlipidemia, unspecified; Z86.718 Personal history of other venous thrombosis and embolism; Z86.73 Personal history of transient ischemic attack (TIA), and cerebral infarction without residual deficits; I10 Essential (primary) hypertension; I25.2 Old myocardial infarction; I25.810 Atherosclerosis of coronary artery bypass graft(s) without angina pectoris; Z95.1 Presence of aortocoronary bypass graft
CPT/HCPCS: 36415; 71010; 80048; 82040; 84484; 85025; 93005; 99285

== ENCOUNTER 2018-03-31 11:51 | Emergency (ER) | payer MEDICARE, MEDICAID ==
[~2018-03-31] VITALS: Ht 188 cm; Wt 82.0 kg
[~2018-03-31 11:51] MED LIST changes: +AMLO-150 PO; -AMLO5TAB2 PO; -FENO145T13 PO; +FENO145T30 PO; -LOSA50TA6 PO; +LOSA50TA7 PO; +WARF6TAB47 PO; -WARF6TAB7 PO
[2018-03-31] MEDS ORDERED: DIPH,PERTUSS(ACELL),TET VAC/PF 0.5 ML IM-VACC ONE ×2 (12:30→15:00)
[2018-03-31] MEDS ORDERED: BACITRACIN ZINC OINT 500U/GM, 0.9 GM ONE (12:34)
[2018-03-31 12:47] LABS: MICROSCOPIC INDICATED
[2018-03-31 12:53] LABS: BASOPHILS # (AUTO) 0.02 x10^3/uL (0-0.1); BASOPHILS % (AUTO) 0 % (0-1); EOSINOPHILS # (AUTO) 0.45 x10^3/uL (0-0.4); EOSINOPHILS % (AUTO) 6 % (1-7); LYMPHOCYTES # (AUTO) 1.71 x10^3/uL (1-3.4); LYMPHOCYTES % (AUTO) 23 % (22-44); MD NO; MEAN CORPUSCULAR HEMOGLOBIN 30.2 pg (27.5-34.5); MEAN CORPUSCULAR HGB CONC 33.8 g/dL (33.2-36.2); MEAN CORPUSCULAR VOLUME 89.6 fL (81-97); MEAN PLATELET VOLUME 8.3 fL (7.4-10.4); MONOCYTES # (AUTO) 0.46 x10^3/uL (0.2-0.8); MONOCYTES % (AUTO) 6 % (2-9); NEUTROPHILS # (AUTO) 4.74 x10^3/uL (1.8-6.8); NEUTROPHILS % (AUTO) 64 % (42-75); PLATELET COUNT 217 x10^3/uL (130-400); RED CELL DISTRIBUTION WIDTH 14.4 % (9.4-14.8)
[2018-03-31 12:58] LABS: AMPHETAMINE SCREEN, URINE Negative (Negative); BARBITURATE SCREEN, URINE Negative (Negative); CANNABINOID SCREEN, URINE Negative (Negative); CULTURE INDICATED? YES
[2018-03-31 13:01] LABS: BENZODIAZEPINE SCREEN, URINE Negative (Negative); COCAINE SCREEN, URINE Negative (Negative); METHADONE SCREEN, URINE Negative (Negative); OPIATE SCREEN, URINE Negative (Negative)
[2018-03-31 13:04] LABS: ALANINE AMINOTRANSFERASE 30 U/L (12-78); ALBUMIN 3.6 g/dL (3.4-5.0); ANION GAP 5 mmol/L (5-15); CALCIUM 8.6 mg/dL (8.5-10.1); CHLORIDE 109 mmol/L (98-107); CREATININE 0.92 mg/dL (0.7-1.3)
[2018-03-31 13:06] LABS: SALICYLATE LEVEL < 1.7 mg/dL (2.8-20.0)
[2018-03-31 13:15] LABS: ALKALINE PHOSPHATASE 93 U/L (45-117); BILIRUBIN,TOTAL 0.3 mg/dL (0.2-1.0); THYROID STIMULATING HORMONE 0.779 mIU/L (0.358-3.740); TOTAL PROTEIN 7.3 g/dL (6.4-8.2)
[2018-03-31 13:17] LABS: ACETAMINOPHEN < 2 mcg/mL (10-30)
[2018-03-31] MEDS ORDERED: MELA3TAB2 PO (13:52)
[2018-03-31] MEDS ORDERED: NICO-486 TD (15:12)
[2018-03-31] MEDS ORDERED: OLAN10TA9 PO (15:14)
[2018-03-31] MEDS ORDERED: DULO30CA2 PO (15:20)
[2018-03-31] MEDS ORDERED: DIPH25CA61 PO (15:20)
[2018-03-31] MEDS ORDERED: TRAZ50TA66 PO (15:20)
[2018-03-31 15:22] VITALS: BP 131/77
== END 2018-03-31 16:24 | disposition home or self-care (01) ==
LOC: ED 15:07
DX: S50.812A Abrasion of left forearm, initial encounter (principal); S60.812A Abrasion of left wrist, initial encounter; F33.9 Major depressive disorder, recurrent, unspecified; E78.5 Hyperlipidemia, unspecified; I11.9 Hypertensive heart disease without heart failure; I25.2 Old myocardial infarction; I25.10 Atherosclerotic heart disease of native coronary artery without angina pectoris; Z86.73 Personal history of transient ischemic attack (TIA), and cerebral infarction without residual deficits; Z86.718 Personal history of other venous thrombosis and embolism; Z95.1 Presence of aortocoronary bypass graft; Y33.XXXA Other specified events, undetermined intent, initial encounter; Y93.89 Activity, other specified; Y92.89 Other specified places as the place of occurrence of the external cause; Y99.8 Other external cause status
CPT/HCPCS: 36415; 80053; 80307; 80329; 81001; 84443; 85025; 87086; 90471; 90715; 99284; G0480

== ENCOUNTER 2018-04-16 20:19 | Emergency (ER) | payer MEDICARE, MEDICAID ==
[~2018-04-16] VITALS: Ht 188 cm; Wt 82.0 kg
[~2018-04-16 20:19] MED LIST changes: +DIPH25CA61 PO; +DULO30CA2 PO; +MELA3TAB2 PO; +OLAN10TA9 PO; +TRAZ50TA66 PO
--- NOTE | 2018-04-16 20:42 | NUR ---
BIB [facility] FROM [facility], EMT STATED PT CUT SELF YESTERDAY WITH SHAVING RAZOR ON LEFT WRIST, PER REMSA PT STATED " I DON'T WANT TO BE HERE ( [facility])" PT HAS PREVIOUS SI ATTEMPT SAME, DENIES SI OR HI AT THIS TIME. PT'S BELONGINGS REMOVED FROM ROOM AND LOCKED IN SECURITY LOCKER, ROOM SECURED WITH GARAGE DOORS DOWN, SITTER AT DOORWAY FOR CONTINOUS MONITORING.
--- NOTE | 2018-04-16 21:47 | NUR ---
PT INCONTINENT OF URINE, PT CLEANED, LINEN CHANGE COMPLETED.
--- NOTE | 2018-04-16 21:48 | NUR ---
LATE ENTRY 2134-ATTEMPTED X3 TO CALL [facility] FOR PT'S D/C AND RETURN TO FACILTY, NO ANSWER AT THIS TIME.
--- NOTE | 2018-04-16 21:50 | NUR ---
ATTEMPTED TO CALL [facility] FOR PT'S RETURN TO [facility], TRANSFERRED TO [facility], RN EXTENTION AND NO ANSWER
--- NOTE | 2018-04-16 22:07 | NUR ---
REPORT CALLED TO [facility] CANTU RN
[2018-04-16 22:08] VITALS: BP 150/83
== END 2018-04-16 23:07 | disposition home or self-care (01) ==
LOC: ED 21:18
DX: F33.0 Major depressive disorder, recurrent, mild (principal); F17.200 Nicotine dependence, unspecified, uncomplicated; G40.909 Epilepsy, unspecified, not intractable, without status epilepticus; I25.2 Old myocardial infarction; I10 Essential (primary) hypertension; I25.10 Atherosclerotic heart disease of native coronary artery without angina pectoris; Z86.73 Personal history of transient ischemic attack (TIA), and cerebral infarction without residual deficits
CPT/HCPCS: 99284

== ENCOUNTER 2018-05-25 19:12 | Observation (INO) | payer MEDICARE, MEDICAID ==
[~2018-05-25] VITALS: Ht 188 cm; Wt 85.0 kg
[~2018-05-25 19:12] MED LIST changes: +LOSA50TA14 PO; -LOSA50TA7 PO
[2018-05-25 19:48] LABS: BASOPHILS # (AUTO) 0.03 x10^3/uL (0-0.1); BASOPHILS % (AUTO) 1 % (0-1); EOSINOPHILS % (AUTO) 6 % (1-7); LYMPHOCYTES # (AUTO) 1.52 x10^3/uL (1-3.4); LYMPHOCYTES % (AUTO) 23 % (22-44); MD NO; MEAN CORPUSCULAR HEMOGLOBIN 29.4 pg (27.5-34.5); MEAN CORPUSCULAR HGB CONC 33.9 g/dL (33.2-36.2); MEAN CORPUSCULAR VOLUME 86.8 fL (81-97); MEAN PLATELET VOLUME 6.3 fL (7.4-10.4); MONOCYTES # (AUTO) 0.62 x10^3/uL (0.2-0.8); MONOCYTES % (AUTO) 9 % (2-9); NEUTROPHILS # (AUTO) 4.15 x10^3/uL (1.8-6.8); NEUTROPHILS % (AUTO) 62 % (42-75); PLATELET COUNT 451 x10^3/uL (130-400); RED BLOOD COUNT 4.45 x10^6/uL (4.38-5.82); RED CELL DISTRIBUTION WIDTH 13.9 % (9.4-14.8)
[2018-05-25 20:02] LABS: ALANINE AMINOTRANSFERASE 24 U/L (12-78); ALBUMIN 2.7 g/dL (3.4-5.0); ANION GAP 6 mmol/L (5-15); CALCIUM 8.4 mg/dL (8.5-10.1); CHLORIDE 110 mmol/L (98-107); CREATININE 0.83 mg/dL (0.7-1.3)
[2018-05-25 20:04] LABS: ALKALINE PHOSPHATASE 87 U/L (45-117); BILIRUBIN,TOTAL 0.4 mg/dL (0.2-1.0); TOTAL PROTEIN 7.2 g/dL (6.4-8.2)
[2018-05-25 20:21] LABS: ACETAMINOPHEN < 2 mcg/mL (10-30); SALICYLATE LEVEL < 1.7 mg/dL (2.8-20.0)
[2018-05-25 21:34] LABS: AMPHETAMINE SCREEN, URINE Negative (Negative); BARBITURATE SCREEN, URINE Negative (Negative); BENZODIAZEPINE SCREEN, URINE Negative (Negative); CANNABINOID SCREEN, URINE Negative (Negative); COCAINE SCREEN, URINE Negative (Negative); METHADONE SCREEN, URINE Negative (Negative); OPIATE SCREEN, URINE Negative (Negative)
--- NOTE | 2018-05-25 22:03 | NUR ---
TELEPSYCH INITIATED, [id number] BOT PLACED AT BS.
--- NOTE | 2018-05-25 22:12 | NUR ---
REPORT FROM WESTLEY MIRELES. PT RESTING IN [facility] W/ EYES CLOSED, EASILY ARROUSABLE TO VOICE. NAD NOTED. NO BELONGINGS NOTED IN ROOM. HURT LOWERED TO SECURE ROOM. SITTER PRESENT. TELE PSYCH MONITOR IN ROOM. PT UPDATED TO POC (SOC CONSULT) AND DEMONSTRATES UNDERSTANDING.
--- NOTE | 2018-05-25 22:53 | NUR ---
REPORT TO SOC MD
--- NOTE | 2018-05-25 23:31 | NUR ---
PER SOC, PT TO BE PLACED ON LEGAL HOLD. LEGAL ON CHART.
[2018-05-25] MEDS ORDERED: CLOP75TA PO (23:42)
[2018-05-25] MEDS ORDERED: BACL20TA PO (23:42)
[2018-05-25] MEDS ORDERED: OXYC5CAP2 PO (23:42)
[2018-05-25] MEDS ORDERED: DIVA500T4 PO (23:42)
--- NOTE | 2018-05-26 00:17 | NUR ---
PT RESTING IN GURNEY W/ EYES CLOSED. EVEN/REGULAR RESPIRATIONS NOTED. PT EASILY ARROUSABLE TO VOICE. ROOM REMAINS SECURE, NO PERSONAL BELONGINGS NOTED. SITTER PRESENT
--- NOTE | 2018-05-26 01:30 | NUR ---
PT PROVIDED URINAL. SOILED LINENS REMOVED AND REPLACED WITH CLEAN LINENS. ROOM REMAINS SECURE; SITTER PRESENT
--- NOTE | 2018-05-26 01:57 | NUR ---
PT TO BE EVALUATED BY 3N PSYCH FOR POTENTIAL ADMIT. HOSPITAL BED REQUESTED FOR PT COMFORT.
--- NOTE | 2018-05-26 02:18 | NUR ---
REPORT RECEIVED FROM WESTLEY ELIAS. ASSUMED CARE OF PT
--- NOTE | 2018-05-26 03:05 | NUR ---
PER PARISA, THE PHYSICIAN WANTS TO WAIT UNTIL MORNING TO MAKE A DECISION ON WHETHER OR NOT TO TAKE THIS PATIENT.
--- NOTE | 2018-05-26 03:30 | NUR ---
PT SLEEPING, NO DISTRESS NOTED, SITTER OUTSIDE DOOR
--- NOTE | 2018-05-26 04:25 | NUR ---
PT CLEANED UP AFTER LARGE FIRM BOWEL MOVEMENT
--- NOTE | 2018-05-26 04:55 | NUR ---
PT MOVED TO HOSPITAL BED AND POSTIONED FOR COMFORT
[2018-05-26] MEDS ORDERED: ACETAMINOPHEN 325 MG TABLET PO PRN ×2 (06:00→23:00)
[2018-05-26] MEDS ORDERED: ONDANSETRON ODT 4 MG PO PRN ×2 (06:00→23:00)
[2018-05-26] MEDS ORDERED: OXYcodone IR 5MG TABLET PO PRN (06:00)
[2018-05-26] MEDS ORDERED: DOCUSATE 100 MG CAPSULE PO PRN ×2 (06:00→23:00)
[2018-05-26] MEDS ORDERED: OLANZAPINE 10 MG INJ IM PRN (06:30)
[2018-05-26] MEDS ORDERED: OLANZAPINE 5 MG TABLET PO PRN (06:30)
--- NOTE | 2018-05-26 06:30 | NUR ---
PT SLEEPING, NO DISTRESS NOTED, SITTER OUTSIDE DOOR
--- NOTE | 2018-05-26 07:05 | NUR ---
received report from Selene. pt sleeping calmly on gurney, NAD with equal chest rise/fall, no needs at this time, pt remains in safe environment, sitter in full view.
[2018-05-26] MEDS ORDERED: CLOPIDOGREL 75 MG TABLET ONE (07:39)
[2018-05-26] MEDS ORDERED: AMLODIPINE 5 MG TABLET ONE (07:39)
[2018-05-26] MEDS ORDERED: DIVALPROEX 500 MG TAB.ER.24H ONE ×2 (07:39→20:58)
[2018-05-26] MEDS ORDERED: TRAZODONE 50MG TABLET ONE ×2 (07:39→22:52)
[2018-05-26] MEDS ORDERED: CARVEDILOL 3.125 MG TABLET ONE ×2 (07:39→20:57)
[2018-05-26] MEDS ORDERED: OLANZAPINE 10 MG TABLET ONE (07:40)
--- NOTE | 2018-05-26 08:01 | NUR ---
pt laying on gurney awake, calm & cooperative, responds approp to staff, NAD, comfort measures provided incl breakfast tray given, pt remains in safe enivronment, sitter in full view.
[2018-05-26] MEDS: LEVETIRACETAM 500 MG TABLET PO SCH ×2 (08:11→21:48)
[2018-05-26] MEDS: BACLOFEN 10 MG TABLET PO SCH ×3 (08:11→21:48)
[2018-05-26] MEDS: TEMPLATE NON-FORMULARY MED. (Carvedilol** 6.25 MG) PO SCH ×2 (08:12→21:48)
[2018-05-26] MEDS: TEMPLATE NON-FORMULARY MED. (Divalproex Sodium** (Depakote Er**) 500 MG) PO SCH ×2 (08:13→21:48)
[2018-05-26] MEDS ORDERED: ASPIRIN 81 MG TABLET EC ONE (08:16)
[2018-05-26] MEDS ORDERED: AMLODIPINE 5 MG TABLET PO SCH (09:00)
[2018-05-26] MEDS ORDERED: DULOXETINE 30 MG CAPSULE.DR PO SCH (09:00)
[2018-05-26] MEDS ORDERED: EZETIMIBE 10 MG TABLET PO SCH (09:00)
[2018-05-26] MEDS ORDERED: TEMPLATE NON-FORMULARY MED. (Clopidogrel Bisulfate** (Clopidogrel**) 75 MG) PO SCH (09:00)
[2018-05-26] MEDS ORDERED: TEMPLATE NON-FORMULARY MED. (Aspirin** (Aspir 81**) 81 MG) PO SCH (09:00)
[2018-05-26] MEDS ORDERED: OLANZAPINE 10 MG PO SCH (09:00)
[2018-05-26] MEDS ORDERED: TRAZODONE 50MG TABLET PO SCH ×2 (09:00→21:00)
--- NOTE | 2018-05-26 09:02 | NUR ---
pt back to sleep on gutania, NAD with equal chest rise/fall, no needs at this time, pt remains in safe environment, sitter in full view.
--- NOTE | 2018-05-26 10:04 | NUR ---
pt continues to sleep on hospital bed, NAD with equal chest rise/fall, no needs at this time, pt remains in safe environment, sitter in full view.
--- NOTE | 2018-05-26 10:26 | NUR ---
report given to Jenni CHRISTY.
--- NOTE | 2018-05-26 10:27 | NUR ---
RECEIVED BEDSIDE REPORT FROM WESTLEY CORONADO. PER SOC NOTES, PT WAS TRANSFERRED HERE [facility] WHERE HE THREATENED TO KILL HIMSELF WITH RAZOR BLADES HE REMOVED FROM HIS RAZOR. ALSO PER NOTES. PT NOW SLEEPING ON HOSP BED. ALL SAFETY MEASURES OBTAINED. WILL CONTINUE TO MONITOR.
--- NOTE | 2018-05-26 10:58 | NUR ---
THROUGHPUT RN: PACKET FAXED TO [facility], [facility], [facility], [facility], [facility], AND [facility].
--- NOTE | 2018-05-26 11:30 | NUR ---
PT CONTINUES TO SLEEP ON HOSP BED. NO ACUTE DISTRESS NOTED. RESPS EQUAL AND UNLABORED. ALL SAFETY MEASURES OBTAINED. WILL CONTINUE TO MONITOR. SITTER AT DOORWAY. PT WITH IN FULL VIEW. DIET TRAY ORDERED.
--- NOTE | 2018-05-26 12:06 | NUR ---
THROUGHPUT: PT DECLINED AT [facility] PER [place].
--- NOTE | 2018-05-26 12:26 | NUR ---
ALL LINENS CHANGED. PT CLEAN AND DRY. DIET TRAY DELIVERED. PT ABLE TO HELP SELF SCOOT UP IN HOSP BED. NO ACUTE DISTRESS NOTED. PT STATES "I HAD HIP SX TWO WEEKS AGO." DRESSING CDI. ALL SAFETY MEASURES OBTAINED.
--- NOTE | 2018-05-26 12:43 | NUR ---
BEDSIDE REPORT TO WESTLEY BARRIOS AND WESTLEY NIETO.
--- NOTE | 2018-05-26 12:47 | NUR ---
ASSUMED CARE OF PT, BEDSIDE REPORT FROM AMADA CHRISTY. PT EATING LUNCH IN BED WITH SITTER AT BEDSIDE. NAD, NO NEEDS AT THIS TIME.
[2018-05-26] MEDS ORDERED: DIPH,PERTUSS(ACELL),TET VAC/PF 0.5 ML IM-VACC ONE (12:49)
--- NOTE | 2018-05-26 14:51 | NUR ---
PT. IS RESTING WITHOUT CONCERNS. VITALS STABLE. FINISHED EATING HIS LUNCH.
--- NOTE | 2018-05-26 17:11 | NUR ---
THROUGHPUT RN: BEHZAD FROM [facility] STATES PT MAY HAVE HX DEMENTIA BASED ON CHARTING ASSESSED FROM [facility] AND STATES PT IS NOT APPROPRIATE.
--- NOTE | 2018-05-26 17:42 | NUR ---
PT. WAS GIVEN DINNER. NO ACUTE DISTRESS.
[2018-05-26 17:58] VITALS: BP 124/77
--- NOTE | 2018-05-26 19:04 | NUR ---
REPORT TO SHANNA CHRISTY.
--- NOTE | 2018-05-26 19:10 | NUR ---
REPORT FROM GEORGES CHRISTY. PT RESTING IN NAD. SITTER IN VIEW OF PT.
[2018-05-26] MEDS ORDERED: TAMSULOSIN 0.4 MG CAP.ER.24H ONE (20:57)
[2018-05-26] MEDS ORDERED: LEVETIRACETAM 500 MG TABLET ONE (20:57)
[2018-05-26] MEDS ORDERED: MELATONIN 3 MG TABLET PO SCH ×2 (21:00)
[2018-05-26] MEDS ORDERED: TAMSULOSIN 0.4 MG CAP.ER.24H PO SCH (21:00)
--- NOTE | 2018-05-26 21:23 | NUR ---
MEDS REQUESTED FROM PHARMACY
[2018-05-26] MEDS ORDERED: OXYcodone IR 5MG TABLET ONE (21:38)
--- NOTE | 2018-05-26 21:49 | NUR ---
PT MEDICATED. LINENS CHANGED. PT HAS NO OTHER NEEDS AT THIS TIME.
--- NOTE | 2018-05-26 21:59 | NUR ---
REPORT TO DOROTA CHRISTY.
--- NOTE | 2018-05-26 22:07 | NUR ---
REPORT FROM SHANNA CHRISTY, ASSUME CARE OF PT AT THIS TIME.
--- NOTE | 2018-05-26 22:12 | NUR ---
PT SLEEPING, NAD, SITTER AT DOORWAY.
--- NOTE | 2018-05-26 22:54 | NUR ---
EMAR REVIEWED AND CONFIRMED WITH SHANNA CHRISTY. PT GIVEN TRAZODONE PER ORDER. PT RESTING QUIETLY, NAD, SITTER AT DOORWAY.
--- NOTE | 2018-05-26 23:00 | NUR ---
SPOKE WITH [facility] ON 3E; THEY WILL BE ABLE TO TAKE PT. WHEN PT. D/C FROM ED. LOPEZ TO CALL DR. CHRISTIAN TO ASK FOR D/C ORDERS. NO ANSWER; WILL CALL AGAIN. Addendum: 05/26/18 at 2301 by VIC LESLIE BREWER
--- NOTE | 2018-05-27 00:13 | NUR ---
DISCHARGE ORDER FOUND ON ORDER LIST. PARISA CHRISTY NOTIFIED, PT TO BE DISCHARGED FROM ED AND TAKEN UP TO ROOM 381
== END 2018-05-27 00:13 ==
LOC: ED 23:14 → EDIP 05-26 05:49
PROVIDERS: ADMIT Internal Medicine; ATTEND Internal Medicine
DX: R45.851 Suicidal ideations (principal); F32.9 Major depressive disorder, single episode, unspecified; M25.552 Pain in left hip; E78.5 Hyperlipidemia, unspecified; I10 Essential (primary) hypertension; F10.10 Alcohol abuse, uncomplicated; F17.200 Nicotine dependence, unspecified, uncomplicated; G40.909 Epilepsy, unspecified, not intractable, without status epilepticus; G81.94 Hemiplegia, unspecified affecting left nondominant side; I25.10 Atherosclerotic heart disease of native coronary artery without angina pectoris; N40.0 Benign prostatic hyperplasia without lower urinary tract symptoms; Z86.73 Personal history of transient ischemic attack (TIA), and cerebral infarction without residual deficits; Z86.79 Personal history of other diseases of the circulatory system; Z91.5 Personal history of self-harm; Z91.81 History of falling; Z95.1 Presence of aortocoronary bypass graft; Z95.2 Presence of prosthetic heart valve; Z95.5 Presence of coronary angioplasty implant and graft; Z96.642 Presence of left artificial hip joint
CPT/HCPCS: 36415; 73502; 80053; 80307; 80329; 85025; 99284; G0378; G0480